=== PATIENT | male | born 1980 | race African-American/Black ===

== ENCOUNTER → 2017-03-26 | Outpatient (CLI) | payer OTHER ==
[~2017-03-26] MED LIST: DOLU1TAB PO; ONDA4TAB10 SL; TRV PO; TRVHP PO
[2017-03-26 12:41] LABS: BASO % 0.2 %; BASO ABS # 0.01 K/uL (0-0.2); COMPLETE YES; EOS % 0.2 %; HEMATOCRIT 44.3 % (42-52); IG% 0.2 %; LYMPH % 41.6 %; LYMPH ABS # 1.82 K/uL (1.2-3.4); MEAN CELL VOLUME 86.5 fL (80-100); MEAN CORPUSCULAR HEMOGLOBIN 30.7 pg (25-34); MEAN CORPUSCULAR HGB CONC 35.4 g/dl (32-36); MEAN PLATELET VOLUME 9.5 fL (7.4-10.4); MONO % 9.8 %; PLATELET COUNT 132 K/uL (130-400); RED BLOOD COUNT 5.12 M/uL (4.7-6.1); WHITE BLOOD COUNT 4.38 K/uL (4.8-10.8)
[2017-03-26 13:41] LABS: ALKALINE PHOSPHATASE 91 U/L (45-117); ALT/SGPT 34 U/L (12-78); AST/SGOT 17 U/L (15-37); BLOOD UREA NITROGEN 9 mg/dl (7-18); BUN/CREATININE RATIO 9.9 (10-20); CALCIUM 9.2 mg/dl (8.5-10.1); CARBON DIOXIDE 30 mmol/L (21-32); CHLORIDE 104 mmol/L (98-107); CREATININE 0.95 mg/dl (0.60-1.40); GLUCOSE 60 mg/dl (70-99); POTASSIUM 3.8 mmol/L (3.5-5.1); SODIUM 141 mmol/L (136-145)
[2017-03-29 12:41] LABS: LSP % CELLS ANALYZED CD4 33 % (30-61); LSP ABSOLUTE CT CD4 583 cells/uL (490-1740); LSP LYMPHOCYTES ABSOLUTE 1753 cells/uL (850-3900)
== END | disposition home or self-care (01) ==
LOC: C.LAB 10:14
PROVIDERS: ATTEND Internal Medicine Infectious Disease
DX: B20 Human immunodeficiency virus [HIV] disease (principal)

== ENCOUNTER 2017-04-10 15:24 | Emergency (ER) | payer OTHER ==
[~2017-04-10 15:24] MED LIST changes: -ONDA4TAB10 SL; -TRV PO
[2017-04-10 15:26] VITALS: TEMP 36.4
[2017-04-10] MEDS ORDERED: TRV PO (15:58)
[2017-04-10] MEDS ORDERED: SODIUM CHLORIDE 0.9% 1000ML 1,000 ML IV STA (16:16)
[2017-04-10] MEDS ORDERED: MoRPHine SULFATE 10 MG/ML CARP/VIAL IV STA (16:16)
[2017-04-10] MEDS ORDERED: ONDANSETRON INJ 2 MG/ML 2 ML VIAL IV STA (16:16)
[2017-04-10 16:22] LABS: HEMATOCRIT 43.2 % (42-52); MEAN CELL VOLUME 83.6 fL (80-100); MEAN CORPUSCULAR HEMOGLOBIN 30.9 pg (25-34); MEAN PLATELET VOLUME 9.2 fL (7.4-10.4); PLATELET COUNT 168 K/uL (130-400); RED BLOOD COUNT 5.17 M/uL (4.7-6.1); WHITE BLOOD COUNT 14.73 K/uL (4.8-10.8)
[2017-04-10 16:30] LABS: ALT/SGPT 42 U/L (12-78); AST/SGOT 25 U/L (15-37); BLOOD UREA NITROGEN 11 mg/dl (7-18); BUN/CREATININE RATIO 8.7 (10-20); CALCIUM 9.6 mg/dl (8.5-10.1); CARBON DIOXIDE 23 mmol/L (21-32); CHLORIDE 103 mmol/L (98-107); GLUCOSE 136 mg/dl (70-99); SODIUM 139 mmol/L (136-145)
[2017-04-10 16:33] LABS: ALKALINE PHOSPHATASE 98 U/L (45-117)
[2017-04-10 17:00] LABS: COMPLETE YES; LYMPH ABS # 4.17 K/uL (1.2-3.4); LYMPHOCYTE % 28.3 %; NEUTROPHILS % 45.2 %; VARIANT LYM ABS # 3.39 K/uL
--- NOTE | 2017-04-10 17:58 | DIAGNOSTIC IMAGING REPORT ---
CT SCAN OF THE ABDOMEN AND PELVIS WITHOUT IV CONTRAST CLINICAL HISTORY: Vomiting. Generalized abdominal pain. COMPARISON STUDY: Abdominal radiograph dated 02/04/2016. TECHNIQUE: CT scan of the abdomen and pelvis is performed from the lung bases to the proximal femora. Images are reviewed in the axial, sagittal, and coronal planes. IV contrast was not administered for this examination as per the referring clinician. Note that the examination was performed in suboptimal fashion without oral and IV contrast. Automated dose control exposure was utilized. CT DOSE: 484.23 mGy.cm FINDINGS: Lung bases: The heart is normal in size and without pericardial effusion. Calcified granulomas are seen in the partially imaged right middle lobe. The lung bases are otherwise clear noting dependent atelectasis. Liver: The unenhanced liver is normal in size, contour, and attenuation. There is no intrahepatic biliary ductal dilatation. Gallbladder: Unremarkable. Spleen: Normal in size and attenuation. Pancreas: Unremarkable. Adrenal glands: Unremarkable. Kidneys: The unenhanced kidneys are normal in size and without hydronephrosis. There are no renal calculi identified. There is no evidence of contour deforming renal mass lesion. Abdominal vasculature: The abdominal aorta is normal in course and caliber. Bowel: The small bowel and colon are normal in course and caliber. The appendix is well-visualized and normal. Peritoneum: There is no intraperitoneal free air or abdominal ascites. There is a small fat-containing umbilical hernia. Lymphadenopathy: None. Pelvic viscera: The bladder, prostate, and seminal vesicles are normal as visualized. Skeletal structures: No lytic or blastic lesions are seen. A large posterior disc bulge is seen at L4-L5. This likely contributes to acquired compromise of the central canal. IMPRESSION: 1. Suboptimal examination without oral and IV contrast. 2. There are no acute infectious or inflammatory findings in the abdomen or pelvis. Electronically signed by: Johny Becerra M.D. 04/10/2017 5:56 PM Dictated Date/Time: 04/10/2017 5:50 PM
[2017-04-10] MEDS ORDERED: ONDA4TAB10 SL (18:09)
--- NOTE | 2017-04-10 18:10 | EMERGENCY ROOM VISIT NOTE ---
History First contact with patient: 16:04 Chief Complaint: VOMITING Stated Complaint: VOMITING,NAUSEA,ABDOMINAL PAIN Nursing Triage Summary: pt c/o nausea vomiting and abdominal pain since 1500. pt actively vomiting in triage and yelling out rocking back and fourth in wheelchair. patient asking for pain medication. pt brought back to the room. IV and labs completed pt asking for pain medication. History of Present Illness The patient is a 36 year old male who presents to the Emergency Room with complaints of nausea, vomiting and abdominal pain which began one hour prior to arrival. The patient states that after eating lunch, he developed severe vomiting and abdominal pain. He denies any changes in bowel movements. The patient denies any blood in his vomit. He does report a history of similar symptoms due to food poisoning. He rates his overall discomfort a 9/10. He has not taken any medication for symptoms. Review of Systems A complete 10 point review of systems was reviewed with the patient with pertinent positives and negatives as per history of present illness. All else were negative. Social History Smoking Status: Never Smoker Marital Status: Housing Status: lives with family Occupation Status: employed Current/Historical Medications Scheduled Dolutegravir Sodium (Tivicay), 50 MG PO DAILY Emtricitabine/Temofovir (Truvada 200-300 mg), 1 TAB PO DAILY Ondasetron Odt (Zofran Odt), 4 MG SL Q6H Allergies Coded Allergies: No Known Allergies (Unverified , 01/10/16) Physical Exam Vital Signs Date Time Temp Pulse Resp B/P (MAP) Pulse Ox O2 Delivery O2 Flow Rate FiO2 04/10/17 18:40 72 20 110/60 98 04/10/17 17:04 68 20 107/63 98 Room Air 04/10/17 15:26 36.4 90 24 130/81 100 Room Air Physical Exam VITALS: Vitals are noted on the nurse's note and reviewed by myself. Vital signs stable. GENERAL: This is a 36-year-old male, holding emesis bag, appears uncomfortable, nondiaphoretic, well-developed well-nourished. HEENT: Normocephalic. PERRLA. EOMI. Nares patent. Mucous membranes moist. Neck is supple without nuchal rigidity. HEART: Regular rate and rhythm without murmurs gallops or rubs. LUNGS: Clear to auscultation bilaterally without wheezes, rales or rhonchi. ABDOMEN: Positive bowel sounds x 4. Soft, mild tenderness to palpation of the left abdomen. NEURO: Patient was alert and oriented to person place and time. Medical Decision & Procedures ER Provider Diagnostic Interpretation: CT SCAN OF THE ABDOMEN AND PELVIS WITHOUT IV CONTRAST IMPRESSION: 1. Suboptimal examination without oral and IV contrast. 2. There are no acute infectious or inflammatory findings in the abdomen or pelvis. Laboratory Results 04/10/17 15:30 Red Blood Count 5.17, Mean Corpuscular Volume 83.6, Mean Corpuscular Hemoglobin 30.9, Mean Corpuscular Hemoglobin Concent 37.0, Mean Platelet Volume 9.2 04/10/17 15:30 Test 04/10/17 15:30 White Blood Count 14.73 K/uL (4.8-10.8) Red Blood Count 5.17 M/uL (4.7-6.1) Hemoglobin 16.0 g/dL (14.0-18.0) Hematocrit 43.2 % (42-52) Mean Corpuscular Volume 83.6 fL (80-100) Mean Corpuscular Hemoglobin 30.9 pg (25-34) Mean Corpuscular Hemoglobin Concent 37.0 g/dl (32-36) Platelet Count 168 K/uL (130-400) Mean Platelet Volume 9.2 fL (7.4-10.4) RDW Standard Deviation 38.5 fL (36.4-46.3) RDW Coefficient of Variation 13.0 % (11.5-14.5) Neutrophils % (Manual) 45.2 % Lymphocytes % (Manual) 28.3 % Variant Lymphocytes % (manual) 23.0 % Monocytes % (Manual) 3.5 % Neutrophils # (Manual) 6.66 K/uL (1.4-6.5) Total Absolute Neutrophils 6.66 K/uL (1.4-6.5) Lymphocytes # (Manual) 4.17 K/uL (1.2-3.4) Absolute Variant Lymphocytes 3.39 K/uL Total Absolute Lymphocytes 7.56 K/uL (1.2-3.4) Monocytes # (Manual) 0.52 K/uL (0.11-0.59) Red Blood Cell Morphology Unremarkable Anion Gap 13.0 mmol/L (3-11) Estimated GFR () 81.9 Estimated GFR (Non- 70.7 BUN/Creatinine Ratio 8.7 (10-20) Calcium Level 9.6 mg/dl (8.5-10.1) Total Bilirubin 0.5 mg/dl (0.2-1) Aspartate Amino Transf (AST/SGOT) 25 U/L (15-37) Alanine Aminotransferase (ALT/SGPT) 42 U/L (12-78) Alkaline Phosphatase 98 U/L (45-117) Total Protein 9.2 gm/dl (6.4-8.2) Albumin 4.7 gm/dl (3.4-5.0) Globulin 4.5 gm/dl (2.5-4.0) Albumin/Globulin Ratio 1.0 (0.9-2) Medications Administered Medications (Trade) Dose Ordered Sig/Chela Route Start Time Stop Time Status Last Admin Dose Admin Sodium Chloride 1,000 ml @ 999 mls/hr Q1H1M STAT IV 04/10/17 16:16 04/10/17 17:16 DC 04/10/17 16:31 999 MLS/HR Ondansetron HCl (Zofran Inj) 4 mg NOW STAT IV 04/10/17 16:16 04/10/17 16:17 DC 04/10/17 16:31 4 MG Morphine Sulfate (MoRPHine SULFATE INJ) 6 mg NOW STAT IV 04/10/17 16:16 04/10/17 16:17 DC 04/10/17 16:31 6 MG Ondansetron HCl (ZOFRAN ODT 4MG Home Pack) 1 homepack UD ONCE PO 04/10/17 18:15 04/10/17 18:16 DC 04/10/17 18:34 1 HOMEPACK ED Course The patient was evaluated as above. Labs were drawn and IV access was obtained. Patient was medicated with 4 mg Zofran IV, 6 mg morphine IV and 1 L normal saline solution. CT of the abdomen and pelvis was performed and read by radiology as above. Patient was reevaluated and felt much better. Findings were discussed with the patient. Discharge instructions were reviewed with the patient. The patient verbalized understanding of my assessment and treatment plan and was discharged home in good condition. Medical Decision Differential diagnosis includes gastroenteritis, pyelonephritis, kidney stone, bowel obstruction, cholecystitis, among others. The patient is a 36-year-old male who presents today complaining of vomiting and abdominal discomfort. Labs revealed a leukocytosis, likely secondary to vomiting. Patient's glucose is mildly elevated and was slightly hypokalemic, also most likely secondary to vomiting. CT of the abdomen and pelvis was performed due to the patient's sudden onset of severe abdominal pain and vomiting. This showed no evidence of acute findings within the abdomen. After the patient's nausea was controlled, he felt much better and repeat abdominal examination showed no tenderness. The patient likely has a gastroenteritis. He 'll be discharged home on Zofran. He was encouraged to push fluids. Based on the patient's presentation and work up, I feel the patient is stable for outpatient treatment. The patient was educated to return to the emergency department for any worsening of their current condition or new/concerning symptoms. He will follow up with his primary care provider. Medication reconciliation: I attest that I have personally reviewed the patient' s current medication list. Blood pressure screening: Patient was found to have normal blood pressure on screening and does not require follow-up. Impression Primary Impression: Vomiting Departure Information Dispostion Home / Self-Care Condition GOOD Prescriptions Ondasetron Odt (ZOFRAN ODT) 4 Mg Tab 4 MG SL Q6H for Nausea, #10 TAB Prov: Tiffany Agosto ., ADRIA 04/10/17 Referrals Marium Cardenas DO (PCP) Patient Instructions My [facility] Additional Instructions You have been prescribed Zofran to be used for any nausea or vomiting. Take as prescribed. Rest and drink plenty of fluids. Off work tomorrow. Follow-up with your family doctor this week. Return to the emergency department with any worsening or new/concerning symptoms. Problem Qualifiers Primary Impression: Vomiting Vomiting type: unspecified Vomiting Intractability: unspecified Nausea presence: with nausea Qualified Codes: R11.2 - Nausea with vomiting, unspecified
[2017-04-10] MEDS ORDERED: ONDANSETRON HOME PACK 4MG OD TAB PO ONE (18:15)
[2017-04-10 18:40] VITALS: BP 110/60; PULSE 72; O2SAT 98
== END 2017-04-10 18:42 | disposition home or self-care (01) ==
LOC: C.EDB 15:25 → C.EDC 18:42
DX: R11.10 Vomiting, unspecified (principal); R10.9 Unspecified abdominal pain; D72.829 Elevated white blood cell count, unspecified; E87.6 Hypokalemia; Z79.899 Other long term (current) drug therapy

== ENCOUNTER 2017-05-02 12:26 | Emergency (ER) | payer OTHER ==
[~2017-05-02] VITALS: Ht 172.7 cm; Wt 78.0 kg
[~2017-05-02 12:26] MED LIST changes: +ONDA4TAB10 SL; +TRV PO; -TRVHP PO
[2017-05-02 12:30] VITALS: TEMP 36.4; Ht 172.7 cm; Wt 78.0 kg
[2017-05-02] MEDS ORDERED: ONDANSETRON INJ 2 MG/ML 2 ML VIAL IV STA (12:40)
[2017-05-02 12:49] LABS: BASO % 0.2 %; BASO ABS # 0.02 K/uL (0-0.2); COMPLETE YES; HEMATOCRIT 43.8 % (42-52); IG% 0.3 %; LYMPH % 16.9 %; LYMPH ABS # 1.81 K/uL (1.2-3.4); MEAN CELL VOLUME 84.2 fL (80-100); MEAN CORPUSCULAR HEMOGLOBIN 30.2 pg (25-34); MEAN CORPUSCULAR HGB CONC 35.8 g/dl (32-36); MEAN PLATELET VOLUME 9.2 fL (7.4-10.4); MONO % 4.4 %; NEUT % 78.2 %; PLATELET COUNT 147 K/uL (130-400); WHITE BLOOD COUNT 10.71 K/uL (4.8-10.8)
[2017-05-02] MEDS ORDERED: KETOROLAC TROMETHAMINE 30 MG/ML VIAL IV STA (13:03)
[2017-05-02] MEDS ORDERED: SODIUM CHLORIDE 0.9% 1000ML 2,000 ML IV STA (13:03)
[2017-05-02 13:07] LABS: BUN/CREATININE RATIO 12.1 (10-20); CREATININE 1.1 mg/dl (0.60-1.40); POTASSIUM 3.7 mmol/L (3.5-5.1)
[2017-05-02 13:15] LABS: CALCIUM 9.5 mg/dl (8.5-10.1)
[2017-05-02 14:13] LABS: URINE APPEARANCE CLEAR (CLEAR); URINE BILIRUBIN NEG (NEG); URINE COLOR YELLOW; URINE NITRITE NEG (NEG); URINE PH 5.5 (4.5-7.5); URINE SPECIFIC GRAVITY 1.021 (1.000-1.030); UROBILINOGEN NEG (NEG); ZZUR CULT IF INDIC CLEAN CATCH NO
[2017-05-02 14:16] LABS: MANUAL MICROSCOPIC REQUIRED? NO; REVIEW REQ? NO
[2017-05-02 15:43] VITALS: BP 118/75; PULSE 81; O2SAT 98
--- NOTE | 2017-05-02 17:15 | EMERGENCY ROOM VISIT NOTE ---
History Report prepared by Rey: Shruti Terrazas Under the Supervision of: Donna EstrellaO. First contact with patient: 12:50 Chief Complaint: ABDOMINAL PAIN Stated Complaint: N/V, DIARRHEA, ADB CRAMPING Nursing Triage Summary: pt here 3 weeks ago with same. states at 1100 started with right sided abd pain n/v/d. pt griseles he was dx with H-Pylori last year but never took the meds for it History of Present Illness The patient is a 36 year old male who presents to the Emergency Room with complaints of intermittent abdominal pain beginning 2 hours ago. The patient states that he was seen here 3 weeks ago for the same pain but did not get the results of his tests. He reports that he followed up with his primary care doctor who diagnosed him with H. pylori. Per nursing staff, the patient has not been taking his medication for H. pylori. The patient is now complaining of 6 episodes of vomiting, 1 episode of diarrhea, and abdominal cramping. He reports that he took Zofran without relief of his symptoms. He has currently no abdominal pain. The patient denies any fevers, chest pain, shortness of breath, pain with urination, rash, changes in eating or drinking, and recent travel. He notes that no one around him has been sick. He reports that nothing makes his pain better or worse. He is HIV-positive with his last CD4 count about 580. He does take antivirals. Source of History: patient Onset: 2 hours ago Position: abdomen Quality: other (cramping) Timing: constant Modifying Factors (Worsening): other (none) Modifying Factors (Relieving): other (none) Associated Symptoms: + vomiting, + diarrhea, No fevers, No chest pain, No SOB, No urinary symptoms, No rash Review of Systems See HPI for pertinent positives & negatives. A total of 10 systems reviewed and were otherwise negative. Past Medical & Surgical Medical Problems: (1) H. pylori infection Family History No pertinent family history stated. Social History Smoking Status: Never Smoker Marital Status: Housing Status: lives with family Occupation Status: employed Current/Historical Medications Scheduled Dolutegravir Sodium (Tivicay), 50 MG PO DAILY Emtricitabine/Temofovir (Truvada 200-300 mg), 1 TAB PO DAILY Ondasetron Odt (Zofran Odt), 4 MG SL Q6H Allergies Coded Allergies: No Known Allergies (Unverified , 05/02/17) Physical Exam Vital Signs Date Time Temp Pulse Resp B/P (MAP) Pulse Ox O2 Delivery O2 Flow Rate FiO2 05/02/17 15:43 81 18 118/75 98 Room Air 05/02/17 14:26 90 15 121/75 97 Room Air 05/02/17 12:30 36.4 85 16 131/80 100 Room Air Physical Exam GENERAL: sitting up in bed, disheveled alert, well appearing, well nourished, no distress, non-toxic EYE EXAM: normal conjunctiva OROPHARYNX: no exudate, no erythema, lips, buccal mucosa, and tongue normal and mucous membranes are moist NECK: supple, no nuchal rigidity, no adenopathy, non-tender LUNGS: Clear to auscultation. Normal chest wall mechanics HEART: no murmurs, S1 normal and S2 normal ABDOMEN: abdomen soft, non-tender, normo-active bowel sounds, no masses, no rebound or guarding. BACK: Back is symmetrical on inspection and there is no deformity, no midline tenderness, no CVA tenderness. SKIN: no rashes and no bruising UPPER EXTREMITIES: upper extremities are grossly normal. LOWER EXTREMITIES: No pitting edema. NEURO EXAM: Normal sensorium, cranial nerves II-XII grossly intact, normal speech, no gross weakness of arms, no gross weakness of legs. Medical Decision & Procedures Laboratory Results 05/02/17 12:35 Red Blood Count 5.20, Mean Corpuscular Volume 84.2, Mean Corpuscular Hemoglobin 30.2, Mean Corpuscular Hemoglobin Concent 35.8, Mean Platelet Volume 9.2, Neutrophils (%) (Auto) 78.2, Lymphocytes (%) (Auto) 16.9, Monocytes (%) (Auto) 4.4, Eosinophils (%) (Auto) 0.0, Basophils (%) (Auto) 0.2, Neutrophils # (Auto) 8.38, Lymphocytes # (Auto) 1.81, Monocytes # (Auto) 0.47, Eosinophils # (Auto) 0.00, Basophils # (Auto) 0.02 05/02/17 12:35 Test 05/02/17 12:35 05/02/17 13:55 White Blood Count 10.71 K/uL (4.8-10.8) Red Blood Count 5.20 M/uL (4.7-6.1) Hemoglobin 15.7 g/dL (14.0-18.0) Hematocrit 43.8 % (42-52) Mean Corpuscular Volume 84.2 fL (80-100) Mean Corpuscular Hemoglobin 30.2 pg (25-34) Mean Corpuscular Hemoglobin Concent 35.8 g/dl (32-36) Platelet Count 147 K/uL (130-400) Mean Platelet Volume 9.2 fL (7.4-10.4) Neutrophils (%) (Auto) 78.2 % Lymphocytes (%) (Auto) 16.9 % Monocytes (%) (Auto) 4.4 % Eosinophils (%) (Auto) 0.0 % Basophils (%) (Auto) 0.2 % Neutrophils # (Auto) 8.38 K/uL (1.4-6.5) Lymphocytes # (Auto) 1.81 K/uL (1.2-3.4) Monocytes # (Auto) 0.47 K/uL (0.11-0.59) Eosinophils # (Auto) 0.00 K/uL (0-0.5) Basophils # (Auto) 0.02 K/uL (0-0.2) RDW Standard Deviation 39.2 fL (36.4-46.3) RDW Coefficient of Variation 13.1 % (11.5-14.5) Immature Granulocyte % (Auto) 0.3 % Immature Granulocyte # (Auto) 0.03 K/uL (0.00-0.02) Anion Gap 12.0 mmol/L (3-11) Est Creatinine Clear Calc Drug Dose 90.7 ml/min Estimated GFR () 100.3 Estimated GFR (Non- 86.5 BUN/Creatinine Ratio 12.1 (10-20) Calcium Level 9.5 mg/dl (8.5-10.1) Total Bilirubin 0.5 mg/dl (0.2-1) Aspartate Amino Transf (AST/SGOT) 20 U/L (15-37) Alanine Aminotransferase (ALT/SGPT) 37 U/L (12-78) Alkaline Phosphatase 88 U/L (45-117) Total Protein 8.6 gm/dl (6.4-8.2) Albumin 4.4 gm/dl (3.4-5.0) Globulin 4.2 gm/dl (2.5-4.0) Albumin/Globulin Ratio 1.0 (0.9-2) Lipase 101 U/L (73-393) Urine Color YELLOW Urine Appearance CLEAR (CLEAR) Urine pH 5.5 (4.5-7.5) Urine Specific [place] 1.021 (1.000-1.030) Urine Protein NEG (NEG) Urine Glucose (UA) NEG (NEG) Urine Ketones TRACE (NEG) Urine Occult Blood NEG (NEG) Urine Nitrite NEG (NEG) Urine Bilirubin NEG (NEG) Urine Urobilinogen NEG (NEG) Urine Leukocyte Esterase NEG (NEG) Laboratory results per my review. Medications Administered Medications (Trade) Dose Ordered Sig/Chela Route Start Time Stop Time Status Last Admin Dose Admin Ondansetron HCl (Zofran Inj) 4 mg NOW STAT IV 05/02/17 12:40 05/02/17 12:42 DC 05/02/17 12:46 4 MG Sodium Chloride 2,000 ml @ 999 mls/hr Q2H1M STAT IV 05/02/17 13:03 05/02/17 15:03 DC 05/02/17 13:17 999 MLS/HR Ketorolac Tromethamine (Toradol Inj) 30 mg NOW STAT IV 05/02/17 13:03 05/02/17 13:04 DC 05/02/17 13:17 30 MG ED Course ED COURSE: Vital signs were reviewed and normal The patients medical record was reviewed The above diagnostic studies were performed and reviewed. ED treatments and interventions as stated above. 1256: The patient was evaluated in room A2. A complete history and physical examination was performed. 1240: Zofran Inj 4mg IV. 1303: Toradol Inj 30mg IV, Sodium Chloride 2000 ml @ 999 mls/hr IV. 1354: I reevaluated and updated the patient. 1525: The patient does have HIV and his last CD4 count is 580. He is on suppressants. 1537: Upon reevaluation, the patient is doing well.I discussed my findings with the patient and he understands and agrees with the treatment plan. Based on the patients age, coexisting illnesses, exam and lab findings the decision to treat as an outpatient was made. The patient remained stable while under my care. The patient appeared well at the time of discharge. Medical Decision Differential diagnoses includes but is not limited to gastritis, peptic ulcer disease, GERD, gallbladder disease, pancreatitis, small bowel obstruction, acute coronary syndrome, pericarditis, ischemic bowel, irritable bowel disease, irritable bowel syndrome, appendicitis, diverticulitis, malignancy, hernia, urinary tract infection, torsion, perforation, trauma, infectious. Blood pressure screening: Patient was found to have normal blood pressure on screening and does not require follow-up. Medication Reconciliation: I attest that I have personally reviewed the patient' s current medication list. Patient is a 36-year-old male who presents the ER for nausea vomiting and diarrhea. He notes it started around 11 today. No recent travel. He does work a [employer]. He is HIV positive with CD4 count of 580. Abdominal exam is completely benign. No pain currently. He is given fluids and Zofran. He complete resolution of his nausea. No vomiting while in the ER. Labs were unremarkable including CBC, BMP, LFTs, bilirubin and lipase. UA was negative. Since he was feeling significantly better I felt it was reasonable to discharge him. I did not feel the need to CT his abdomen as there is no signs of peritonitis on multiple re-evaluations. Discussed with Pt concerning signs and symptoms to watch out for. Pt was instructed to follow up with their PCP and discussed with the patient their option to return to the ED at anytime for persistent or worsening symptoms. The appropriate anticipatory guidance and out- patient management, including indications for return to the emergency department , were explained at length to the patient and understood. Impression Primary Impression: Periumbilical abdominal pain Additional Impression: Nausea & vomiting Scribe Attestation The scribe's documentation has been prepared under my direction and personally reviewed by me in its entirety. I confirm that the note above accurately reflects all work, treatment, procedures, and medical decision making performed by me. Departure Information Dispostion Home / Self-Care Referrals Marium Cardenas DO (PCP) Forms Call Back Authorization, HOME CARE DOCUMENTATION FORM, IMPORTANT VISIT INFORMATION Patient Instructions ED Nausea Vomiting, My [facility] Additional Instructions Please follow up with your primary care doctor with in the next 24 hours. Any worsening of your symptoms, please return to the ED immediately. This includes fevers greater than 100.4, unable to eat or drink, blood in her vomit, blood in her stool, passing out, chest pain, shortness of breath or any other concerning signs or symptoms from your standpoint. Please continue to take Zofran as needed for nausea/vomiting. Problem Qualifiers Additional Impression: Nausea & vomiting Vomiting type: unspecified Vomiting Intractability: non-intractable Qualified Codes: R11.2 - Nausea with vomiting, unspecified
== END 2017-05-02 15:49 | disposition home or self-care (01) ==
LOC: C.EDB 12:27 → C.EDA 15:49
DX: R10.33 Periumbilical pain (principal); R11.2 Nausea with vomiting, unspecified; Z21 Asymptomatic human immunodeficiency virus [HIV] infection status; Z86.19 Personal history of other infectious and parasitic diseases; Z79.899 Other long term (current) drug therapy

== ENCOUNTER → 2017-08-12 | Outpatient (CLI) | payer OTHER ==
[2017-08-12 12:42] LABS: BASO % 0.3 %; BASO ABS # 0.01 K/uL (0-0.2); COMPLETE YES; EOS % 0.3 %; HEMATOCRIT 42.4 % (42-52); IG% 0.3 %; LYMPH % 49.3 %; LYMPH ABS # 1.67 K/uL (1.2-3.4); MEAN CELL VOLUME 84.3 fL (80-100); MEAN CORPUSCULAR HGB CONC 35.6 g/dl (32-36); MEAN PLATELET VOLUME 9.4 fL (7.4-10.4); MONO % 10.6 %; NEUT % 39.2 %; PLATELET COUNT 106 K/uL (130-400); RED BLOOD COUNT 5.03 M/uL (4.7-6.1); WHITE BLOOD COUNT 3.39 K/uL (4.8-10.8)
[2017-08-12 13:09] LABS: BLOOD UREA NITROGEN 12 mg/dl (7-18); CREATININE 0.97 mg/dl (0.60-1.40); GLUCOSE 91 mg/dl (70-99)
[2017-08-12 13:10] LABS: ALT/SGPT 53 U/L (12-78); BUN/CREATININE RATIO 12.5 (10-20); CALCIUM 8.8 mg/dl (8.5-10.1); CARBON DIOXIDE 25 mmol/L (21-32); CHLORIDE 107 mmol/L (98-107); POTASSIUM 3.8 mmol/L (3.5-5.1); SODIUM 140 mmol/L (136-145)
[2017-08-12 13:13] LABS: ALKALINE PHOSPHATASE 87 U/L (45-117); AST/SGOT 24 U/L (15-37)
[2017-08-14 18:34] LABS: LSP % CELLS ANALYZED CD4 30 % (30-61); LSP ABSOLUTE CT CD4 501 cells/uL (490-1740); LSP LYMPHOCYTES ABSOLUTE 1657 cells/uL (850-3900)
== END | disposition home or self-care (01) ==
LOC: C.LAB1850 10:53
PROVIDERS: ATTEND Internal Medicine Infectious Disease
DX: B20 Human immunodeficiency virus [HIV] disease (principal)

== ENCOUNTER → 2018-01-26 | Outpatient (CLI) | payer OTHER ==
[~2018-01-26] MED LIST changes: -ONDA4TAB10 SL
[2018-01-26 09:53] LABS: BASO % 0.7 %; BASO ABS # 0.03 K/uL (0-0.2); EOS % 0.5 %; EOS ABS # 0.02 K/uL (0-0.5); HEMATOCRIT 40.2 % (42-52); HEMOGLOBIN 14.6 g/dL (14.0-18.0); IG# 0.02 K/uL (0.00-0.02); LYMPH % 49.9 %; LYMPH ABS # 2.18 K/uL (1.2-3.4); MEAN CELL VOLUME 84.1 fL (80-100); MEAN CORPUSCULAR HEMOGLOBIN 30.5 pg (25-34); MEAN CORPUSCULAR HGB CONC 36.3 g/dl (32-36); MEAN PLATELET VOLUME 9.4 fL (7.4-10.4); MONO ABS # 0.35 K/uL (0.11-0.59); NEUT % 40.4 %; NEUT ABS # 1.77 K/uL (1.4-6.5); PLATELET COUNT 135 K/uL (130-400); RED CELL DISTRIBUTION WIDTH SD 38.8 fL (36.4-46.3); WHITE BLOOD COUNT 4.37 K/uL (4.8-10.8)
[2018-01-26 10:54] LABS: ALT/SGPT 44 U/L (12-78); AST/SGOT 22 U/L (15-37); BLOOD UREA NITROGEN 9 mg/dl (7-18); CALCIUM 9.2 mg/dl (8.5-10.1); CARBON DIOXIDE 23 mmol/L (21-32); GLUCOSE 153 mg/dl (70-99); POTASSIUM 3.2 mmol/L (3.5-5.1); SODIUM 135 mmol/L (136-145)
[2018-01-26 10:59] LABS: ALKALINE PHOSPHATASE 141 U/L (45-117); CHOLESTEROL 124 mg/dl (0-200); LDL CHOLESTEROL CALCULATED 58 mg/dl; TOTAL PROTEIN 8.3 gm/dl (6.4-8.2)
[2018-01-28 20:29] LABS: LSP % CELLS ANALYZED CD4 36 % (30-61); LSP ABSOLUTE CT CD4 770 cells/uL (490-1740)
== END | disposition home or self-care (01) ==
LOC: C.LAB1850 08:05
PROVIDERS: ATTEND Internal Medicine Infectious Disease
DX: B20 Human immunodeficiency virus [HIV] disease (principal)